=== PATIENT | female | born 1970 | race Caucasian/White ===

== ENCOUNTER 2017-04-09 13:33 | Day surgery (SDC) | payer OTHER ==
[~2017-04-09] VITALS: Ht 175.3 cm; Wt 78.0 kg
[~2017-04-09 13:33] MED LIST: NO HOME MEDS
[2017-04-09 14:03] VITALS: BP 114/70
[2017-04-09] MEDS ORDERED: LACTATED RINGERS 1,000 ML IV SCH (14:06)
[2017-04-09] MEDS ORDERED: SILVER NITRATE STICK TP ONE (15:04)
[2017-04-09] MEDS ORDERED: MISOPROSTOL 200 MCG TABLET ONE (15:04)
[2017-04-09] MEDS ORDERED: OXYTOCIN 10 UNITS/ML, 1ML ONE (15:04)
[2017-04-09] MEDS ORDERED: METHYLERGONOVINE 0.2 MG/ML IM ONE (15:05)
[2017-04-09] MEDS ORDERED: SCOPOLAMINE PATCH, 1.5MG PATCH.TD72 TD ONE (15:17)
[2017-04-09] MEDS ORDERED: FENTANYL PF 100 MCG/2ML ONE (15:23)
[2017-04-09] MEDS ORDERED: MIDAZOLAM 1 MG/ML, 2ML ONE (15:23)
[2017-04-09] MEDS ORDERED: DOXYCYCLINE 100 MG ONE (16:13)
[2017-04-09] MEDS ORDERED: PROPOFOL 10 MG/ML, 20ML ONE (16:19)
[2017-04-09] MEDS ORDERED: DEXAMETHASONE 4 MG/ML, 1ML ONE (16:19)
[2017-04-09] MEDS ORDERED: CEFAZOLIN 1,000 MG ONE (16:19)
[2017-04-09] MEDS ORDERED: ONDANSETRON 2MG/ML, 2ML ONE (16:19)
[2017-04-09] MEDS ORDERED: METOCLOPRAMIDE 5 MG/ML, 2ML ONE (16:19)
[2017-04-09] MEDS ORDERED: KETOROLAC 30 MG/1 ML ONE (16:20)
[2017-04-09] MEDS ORDERED: EPHEDRINE 50 MG/ML, 1ML ONE (16:20)
[2017-04-09] MEDS ORDERED: hydrALAzine 20 MG/ML, 1ML IV PRN (16:30)
[2017-04-09] MEDS ORDERED: DIAZEPAM 5 MG/ML, 2ML IVPush PRN (16:30)
[2017-04-09] MEDS ORDERED: ACETAMINOPHEN 325 MG TABLET PO PRN (16:30)
[2017-04-09] MEDS ORDERED: PROMETHAZINE 12.5 MG SUPP PR PRN (16:30)
[2017-04-09] MEDS ORDERED: ALBUTEROL/IPRATROPIUM 2.5MG/0.5MG, 3 ML NPPB PRN (16:30)
[2017-04-09] MEDS ORDERED: OXYcodone 5 MG/5 ML ORAL.SOL UDC PO PRN (16:30)
[2017-04-09] MEDS ORDERED: LABETALOL 5MG/ML, 20ML IV PRN (16:30)
[2017-04-09] MEDS ORDERED: MEPERIDINE/PF 25MG/0.5ML IVPush PRN (16:30)
[2017-04-09] MEDS ORDERED: MIDAZOLAM 1 MG/ML, 2ML IV PRN (16:30)
[2017-04-09] MEDS ORDERED: FENTANYL PF 100 MCG/2ML IV PRN (16:30)
[2017-04-09] MEDS ORDERED: HYDROmorphone 1 MG/ML, 1ML IV PRN (16:30)
[2017-04-09] MEDS ORDERED: PROMETHAZINE 25 MG/ML, 1ML IV PRN (16:30)
[2017-04-09] MEDS ORDERED: ONDANSETRON 2MG/ML, 2ML IVPush PRN (16:30)
[2017-04-09] MEDS ORDERED: OXYcodone 5 MG/5 ML ORAL.SOL UDC ONE (16:55)
[2017-04-09] MEDS ORDERED: ACETAMINOPHEN 650 MG/20.3 ML UDC ONE (16:55)
== END 2017-04-09 18:20 | disposition home or self-care (01) ==
LOC: OUT 13:33
PROVIDERS: ATTEND Obstetrics & Gynecology
DX: O02.0 Blighted ovum and nonhydatidiform mole (principal); Z98.890 Other specified postprocedural states; Z3A.00 Weeks of gestation of pregnancy not specified
CPT/HCPCS: 59812; 88305; J1100; J1885; J2250; J2405; J2704; J2765; J3010; J0690; J2210; J2590

== ENCOUNTER 2017-05-18 11:59 | Day surgery (SDC) | payer OTHER ==
[2017-05-18 12:31] VITALS: BP 117/78
[2017-05-18] MEDS ORDERED: NALT1TAB PO (12:31)
[2017-05-18] MEDS ORDERED: LACTATED RINGERS 1,000 ML IV SCH (12:37)
[2017-05-18 12:48] LABS: HCG UR SG 1.005 (1.003-1.030)
[2017-05-18] MEDS ORDERED: PLEASE ENTER HEIGHT AND WEIGHT MC SCH ×2 (13:00→15:00)
[2017-05-18] MEDS ORDERED: ONDANSETRON ODT 8 MG PO STA (13:44)
[2017-05-18] MEDS ORDERED: OxyconTIN ER 10 MG TAB.ER ONE (13:50)
[2017-05-18] MEDS ORDERED: ACETAMINOPHEN 500 MG TABLET ONE (13:50)
[2017-05-18] MEDS ORDERED: GABAPENTIN 300 MG CAPSULE ONE (13:51)
[2017-05-18] MEDS ORDERED: ONDANSETRON ODT 8 MG ONE (13:56)
[2017-05-18] MEDS ORDERED: GABAPENTIN 300 MG CAPSULE PO ONE (14:00)
[2017-05-18] MEDS ORDERED: ACETAMINOPHEN 500 MG TABLET PO ONE (14:00)
[2017-05-18] MEDS ORDERED: OxyconTIN ER 10 MG TAB.ER PO ONE (14:00)
[2017-05-18] MEDS ORDERED: SILVER NITRATE STICK TP ONE (14:14)
[2017-05-18] MEDS ORDERED: BUPIVACAINE/PF 0.25% ONE (14:14)
[2017-05-18] MEDS ORDERED: EPINEPHRINE 1 MG/ML, 1ML ONE (14:16)
[2017-05-18] MEDS ORDERED: MIDAZOLAM 1 MG/ML, 2ML ONE (14:16)
[2017-05-18] MEDS ORDERED: LIDOCAINE-MPF 2% ,5ML ONE (14:23)
[2017-05-18] MEDS ORDERED: PROPOFOL 10 MG/ML, 20ML ONE (14:23)
[2017-05-18] MEDS ORDERED: FENTANYL PF 250 MCG/5ML ONE (14:23)
[2017-05-18] MEDS ORDERED: ROCURONIUM 10 MG/ML,10ML ONE (14:25)
[2017-05-18] MEDS ORDERED: CEFOTETAN 2 GM ONE (14:25)
[2017-05-18] MEDS ORDERED: KETOROLAC 30 MG/1 ML ONE (14:25)
[2017-05-18] MEDS ORDERED: DEXAMETHASONE 4 MG/ML, 1ML ONE ×2 (14:29)
[2017-05-18] MEDS ORDERED: morphine SULFATE 10 MG/ML, 1ML IV PRN (15:00)
[2017-05-18] MEDS ORDERED: FENTANYL PF 100 MCG/2ML IV PRN (15:00)
[2017-05-18] MEDS ORDERED: PROMETHAZINE 25 MG/ML, 1ML IV PRN (15:00)
[2017-05-18] MEDS ORDERED: hydrALAzine 20 MG/ML, 1ML IV PRN (15:00)
[2017-05-18] MEDS ORDERED: LABETALOL 5MG/ML, 20ML IV PRN (15:00)
[2017-05-18] MEDS ORDERED: OXYcodone 5 MG/5 ML ORAL.SOL UDC PO PRN (15:00)
[2017-05-18] MEDS ORDERED: MEPERIDINE/PF 25MG/0.5ML IVPush PRN (15:00)
[2017-05-18] MEDS ORDERED: ONDANSETRON ODT 8 MG PO ONE (16:30)
== END 2017-05-18 18:20 ==
LOC: OUT 11:59
PROVIDERS: ATTEND Obstetrics & Gynecology
DX: Z30.2 Encounter for sterilization (principal); N92.0 Excessive and frequent menstruation with regular cycle; Z98.890 Other specified postprocedural states
CPT/HCPCS: 58563; 58670; 81025; 88302; 88305; J0171; J1100; J1885; J2704; J3010; J3490; J7120; Q0162; S0074

== ENCOUNTER → 2018-03-01 | Outpatient (CLI) | payer OTHER ==
[~2018-03-01] MED LIST changes: +NALT1TAB PO
== END | disposition home or self-care (01) ==
LOC: CFH 13:38
PROVIDERS: ATTEND Obstetrics & Gynecology
DX: N64.4 Mastodynia (principal)
CPT/HCPCS: 76642; 77066; G0279

== ENCOUNTER 2018-04-25 08:33 | Emergency (ER) | payer OTHER ==
[~2018-04-25] VITALS: Ht 175.3 cm; Wt 80.4 kg
[2018-04-25 08:39] VITALS: BP 135/79
[2018-04-25] MEDS ORDERED: ACETAMINOPHEN 500 MG TABLET PO ONE (09:00)
[2018-04-25] MEDS ORDERED: ACETAMINOPHEN 500 MG TABLET ONE (09:17)
== END 2018-04-25 10:21 | disposition home or self-care (01) ==
LOC: ED 09:51
DX: S06.0X0A Concussion without loss of consciousness, initial encounter (principal); Z87.891 Personal history of nicotine dependence; W17.81XA Fall down embankment (hill), initial encounter; Y93.23 Activity, snow (alpine) (downhill) skiing, snowboarding, sledding, tobogganing and snow tubing; Y92.89 Other specified places as the place of occurrence of the external cause; Y99.8 Other external cause status
CPT/HCPCS: 70450; 99284

== ENCOUNTER 2018-09-20 08:21 | Day surgery (SDC) | payer OTHER ==
[~2018-09-20] VITALS: Ht 175.3 cm; Wt 70.2 kg
== END 2018-09-20 15:00 | disposition home or self-care (01) ==
LOC: OUT 08:21
PROVIDERS: ATTEND Otolaryngology
DX: J32.3 Chronic sphenoidal sinusitis (principal); F15.90 Other stimulant use, unspecified, uncomplicated; J34.89 Other specified disorders of nose and nasal sinuses
CPT/HCPCS: 31256; 31259; 87070; 87075; 87102; 87205; 88304; J0690; J1100; J2250; J2270; J2370; J2405; J2704; J2710; J3010; J3490

== ENCOUNTER 2019-04-17 08:41 | Outpatient (CLI) | payer OTHER | END 2019-04-17 23:59 | disposition home or self-care (01) | LOC: CFH 08:41 | PROVIDERS: ATTEND Obstetrics & Gynecology | DX: N60.02 Solitary cyst of left breast (principal); Z80.3 Family history of malignant neoplasm of breast | CPT/HCPCS: 76641 ==